=== PATIENT | male | born 1960 | race Native Hawaiian/Other Pacific Islander ===

== ENCOUNTER 2016-03-11 14:40 | Outpatient (CLI) | payer OTHER ==
[~2016-03-11 14:40] MED LIST: AMBIEN5 MG PO; BENTYL10 MG PO; BUTALBITAL/ACET1 CAP PO; FINA5TAB2 PO; FURO40TA93 PO; LEVO0.0723 PO; LIPITOR20 MG PO; LYRICA20 MG/ML OR; RIOMET OR; TAMS0.4C PO; ZANTAC PO
== END 2016-03-11 23:39 | disposition home or self-care (01) ==
LOC: RAD 14:40
DX: M25.551 Pain in right hip (principal)

== ENCOUNTER 2017-02-14 15:22 | Outpatient (CLI) | payer OTHER ==
[2017-02-15] MEDS ORDERED: FURO20TA67 PO (07:48)
[2017-02-15] MEDS ORDERED: LYRICA25 MG OR (07:50)
== END 2017-02-14 15:29 | disposition short-term general hospital (02) ==
LOC: AMB 15:22
DX: M79.672 Pain in left foot (principal); M79.671 Pain in right foot; M79.89 Other specified soft tissue disorders; G25.2 Other specified forms of tremor; R26.89 Other abnormalities of gait and mobility
CPT/HCPCS: A0425; A0427

== ENCOUNTER 2017-02-14 15:31 | Inpatient (IN) | payer OTHER ==
[~2017-02-14] VITALS: Ht 170.2 cm; Wt 84.4 kg
[2017-02-14 15:40] VITALS: BP 154/65; TEMP 96.8
[2017-02-14 16:28] LABS: PLATELET COUNT 236 K/uL (142-355)
[2017-02-14 17:46] LABS: POTASSIUM 3.8 mmol/L (3.6-5.2); SODIUM 143 mmol/L (136-145)
[2017-02-14 23:56] VITALS: BP 143/62; TEMP 98.4; Ht 170.2 cm; Wt 84.4 kg
--- NOTE | 2017-02-15 02:04 | NUR ---
02/14/172050 PATIENT BROUHGT TO FLOOR VIA STRETCHER FROM ER. ASSISTED TO THE BED, PATIENT HAS OWN CLOTHING. 22G TO [facility], . FLOOR NURSE BERYL BURRIS RN WAS IN ROOM DURING ASSESSMENT.
[2017-02-15 04:00] VITALS: BP 111/42; TEMP 98.6
[2017-02-15 05:58] LABS: POTASSIUM 3.1 mmol/L (3.6-5.2); SODIUM 142 mmol/L (136-145)
[2017-02-15 06:34] LABS: PLATELET COUNT 190 K/uL (142-355)
--- NOTE | 2017-02-15 06:51 | NUR ---
0651 02/15/17 ATTEMPTED 16FRENCH CATHETER. NO SUCCESS.
[2017-02-15] MEDS ORDERED: FURO20TA67 PO (07:48)
[2017-02-15] MEDS ORDERED: LYRICA25 MG OR (07:50)
[2017-02-15 08:00] VITALS: BP 122/55; TEMP 97.6
[2017-02-15 12:00] VITALS: BP 137/54; TEMP 98.2
[2017-02-15 16:00] VITALS: BP 128/59; TEMP 98.9
[2017-02-15 20:00] VITALS: BP 135/87; TEMP 98.6
[2017-02-16] VITALS: BP 139/65; TEMP 98.2
--- NOTE | 2017-02-16 01:18 | NUR ---
02/16/17 WARM COMPRESSES APPLIED TO NECK/FACE.CC
[2017-02-16 04:00] VITALS: BP 132/70; TEMP 98.1
--- NOTE | 2017-02-16 04:24 | NUR ---
02/16/17 040 PT SITTING ON SIDE OF BED NOT WEARING OXYGEN SATURATION IS NOTED TO BE 88-89.PT IS HAS SOME TROUBLE BREATHING AND SOME WHEEZING LUNG SOUNDS ARE DIMINISHED.OXYGEN PLACED BACK ON PT O2 SAT'S CAME UP TO 94 PERCENT.CC 02/16/17 0405 RESPIRATORY NOTIFIED FOR CONSULT.CC 02/16/17 0415 RESPIRATORY PRESENT IN ROOM TO EVALUATE PATIENT RECOMMENDS FOR PT TO HAVE DUONEBS EVERY 6 HOURS AND PRN.CC 02/16/17 0430 RESPIRATORY PRESENT IN ROOM FOR BREATHING TREATMNET.CC
--- NOTE | 2017-02-16 04:48 | NUR ---
02/16/17 0448 PATIENT RESTING IN BED WITH EYES CLOSED, SEEMS TO BREATH BETTER SINCE RESPIRTATORY GAVE BREATHING TREATMET. NO ACUTE DISTRESS NOTED.
[2017-02-16 05:29] LABS: PLATELET COUNT 158 K/uL (142-355)
[2017-02-16 05:53] LABS: POTASSIUM 3.7 mmol/L (3.6-5.2); SODIUM 142 mmol/L (136-145)
[2017-02-16 07:50] VITALS: BP 135/61; TEMP 98.6
[2017-02-16 12:00] VITALS: BP 137/61; TEMP 99.5
[2017-02-16 15:54] VITALS: BP 142/59; TEMP 98.9
[2017-02-16 20:09] VITALS: BP 159/54; TEMP 98.6
[2017-02-17] VITALS: BP 145/70; TEMP 98.3
[2017-02-17 04:00] VITALS: BP 168/58; TEMP 98.1
[2017-02-17 04:45] LABS: PLATELET COUNT 142 K/uL (142-355)
[2017-02-17 05:10] LABS: POTASSIUM 3.5 mmol/L (3.6-5.2); SODIUM 140 mmol/L (136-145)
[2017-02-17 08:00] VITALS: BP 171/72; TEMP 98.2
[2017-02-17] MEDS ORDERED: LEVO0.0723 PO (12:07)
[2017-02-17] MEDS ORDERED: LEVAQUIN 500MG TAB PO (12:07)
[2017-02-17 12:18] VITALS: BP 166/62; TEMP 97.9
== END 2017-02-17 12:45 | disposition home or self-care (01) | DRG 603 ==
LOC: ED 15:31 → MED/SURG 18:42
PROVIDERS: Internal Medicine; ADMIT Specialist
DX: L03.116 Cellulitis of left lower limb (principal); L03.115 Cellulitis of right lower limb; E11.9 Type 2 diabetes mellitus without complications; K21.9 Gastro-esophageal reflux disease without esophagitis; J44.9 Chronic obstructive pulmonary disease, unspecified
CPT/HCPCS: 36415; 80048; 80053; 80076; 80202; 81000; 82140; 82948; 83605; 83735; 84443; 85027; 85610; 85651; 87040; 94640; 94664; 94760; 96361; 96365; 96372; 99284; J1644; J1956; J3370

== ENCOUNTER 2017-02-20 12:30 | Outpatient (CLI) | payer OTHER ==
[~2017-02-20 12:30] MED LIST changes: +FURO20TA67 PO; +LEVAQUIN 500MG TAB PO; +LYRICA25 MG OR
[2017-02-21] MEDS ORDERED: BUDE1AER5 INH (11:53)
[2017-02-21] MEDS ORDERED: LYRICA200 MG PO (11:54)
[2017-02-21] MEDS ORDERED: TIROSINT25 MCG PO (11:55)
[2017-02-21] MEDS ORDERED: FLONASE AL50 MCG/ACT (11:55)
[2017-02-21] MEDS ORDERED: OLANZAPINE20 M1 PO (11:56)
[2017-02-21] MEDS ORDERED: BUSPIRONE10 MG PO (11:56)
[2017-02-21] MEDS ORDERED: QUETIAPINE FUM400 MG PO (11:57)
== END 2017-02-20 12:39 | disposition short-term general hospital (02) ==
LOC: AMB 12:30
DX: R41.82 Altered mental status, unspecified (principal); E86.0 Dehydration
CPT/HCPCS: A0425; A0427

== ENCOUNTER 2017-02-20 12:41 | Inpatient (IN) | payer OTHER ==
[~2017-02-20] VITALS: Ht 175.3 cm; Wt 75.0 kg
[2017-02-20 12:42] VITALS: BP 167/77; TEMP 98
[2017-02-20 14:30] VITALS: BP 156/74
[2017-02-20 14:55] LABS: POTASSIUM 3.6 mmol/L (3.6-5.2); SODIUM 139 mmol/L (136-145)
[2017-02-20 15:01] LABS: PLATELET COUNT 164 K/uL (142-355)
[2017-02-20 15:11] LABS: PARTIAL THROMBOPLASTIN TIME 25.5 SECONDS (24.5-33.6)
[2017-02-20 17:45] VITALS: BP 150/72
[2017-02-20 23:13] VITALS: BP 148/75; TEMP 97.6; Ht 175.3 cm; Wt 75.0 kg
[2017-02-21] VITALS: BP 145/61; TEMP 97.7
[2017-02-21 05:12] LABS: PLATELET COUNT 169 K/uL (142-355)
[2017-02-21 05:29] LABS: POTASSIUM 3.3 mmol/L (3.6-5.2); SODIUM 142 mmol/L (136-145)
[2017-02-21 06:28] VITALS: BP 179/77; TEMP 98.6
[2017-02-21 08:00] VITALS: BP 148/68; TEMP 99.2
[2017-02-21] MEDS ORDERED: BUDE1AER5 INH (11:53)
[2017-02-21] MEDS ORDERED: LYRICA200 MG PO (11:54)
[2017-02-21] MEDS ORDERED: FLONASE AL50 MCG/ACT (11:55)
[2017-02-21] MEDS ORDERED: TIROSINT25 MCG PO (11:55)
[2017-02-21] MEDS ORDERED: BUSPIRONE10 MG PO (11:56)
[2017-02-21] MEDS ORDERED: OLANZAPINE20 M1 PO (11:56)
[2017-02-21] MEDS ORDERED: QUETIAPINE FUM400 MG PO (11:57)
[2017-02-21 12:00] VITALS: BP 160/63; TEMP 99.1
[2017-02-21 16:00] VITALS: BP 181/82; TEMP 99.3
[2017-02-21 20:00] VITALS: BP 167/66; TEMP 98.9
[2017-02-22 01:04] VITALS: BP 142/53; TEMP 98.8
[2017-02-22 05:06] VITALS: BP 145/58; TEMP 98.8
[2017-02-22 05:41] LABS: POTASSIUM 3.8 mmol/L (3.6-5.2); SODIUM 140 mmol/L (136-145)
[2017-02-22 06:26] LABS: PLATELET COUNT 161 K/uL (142-355)
[2017-02-22 09:18] VITALS: BP 150/65; TEMP 98.3
[2017-02-22 12:00] VITALS: BP 159/67; TEMP 99.3
[2017-02-22 16:00] VITALS: BP 167/74; TEMP 99.2
[2017-02-22 20:00] VITALS: BP 196/82; TEMP 99.4
[2017-02-23] VITALS: BP 163/69; TEMP 99.2
[2017-02-23 07:03] LABS: PLATELET COUNT 169 K/uL (142-355)
[2017-02-23 08:00] VITALS: BP 154/66; TEMP 98.1
[2017-02-23 09:12] LABS: POTASSIUM 3.9 mmol/L (3.6-5.2); SODIUM 137 mmol/L (136-145)
[2017-02-23 11:57] VITALS: BP 169/71; TEMP 97.6
[2017-02-23 16:00] VITALS: BP 152/64; TEMP 98.6
[2017-02-23 20:22] VITALS: BP 152/59; TEMP 98.8
[2017-02-24] VITALS: BP 115/64; TEMP 98.6
[2017-02-24 04:00] VITALS: BP 162/75; TEMP 98.9
[2017-02-24 06:18] LABS: POTASSIUM 3.8 mmol/L (3.6-5.2); SODIUM 136 mmol/L (136-145)
[2017-02-24 06:29] LABS: PLATELET COUNT 189 K/uL (142-355)
[2017-02-24 07:00] VITALS: BP 129/75; TEMP 98
[2017-02-24 12:00] VITALS: BP 152/70; TEMP 98.6
[2017-02-24 16:00] VITALS: BP 145/64; TEMP 98.8
[2017-02-24 20:00] VITALS: BP 156/69; TEMP 98.9
[2017-02-25] VITALS: BP 134/59; TEMP 99.2
[2017-02-25 04:00] VITALS: BP 153/68; TEMP 98.6
[2017-02-25 08:00] VITALS: BP 161/74; TEMP 98.6
[2017-02-25 11:00] VITALS: BP 158/81; TEMP 98.4
[2017-02-25 20:13] VITALS: BP 163/71; TEMP 98.4
[2017-02-26] VITALS: BP 168/80; TEMP 98.7
[2017-02-26 04:00] VITALS: BP 163/74; TEMP 98.7
[2017-02-26 08:00] VITALS: BP 152/70; TEMP 98.3
[2017-02-26] MEDS ORDERED: CIPRO500 MG PO (09:50)
[2017-02-26 11:49] VITALS: BP 154/67; TEMP 98.1
[2017-02-26 16:00] VITALS: BP 182/65; TEMP 97.8
[2017-02-26 20:23] VITALS: BP 137/62; TEMP 98.7
[2017-02-27 00:27] VITALS: BP 134/66; TEMP 98
[2017-02-27 04:27] VITALS: BP 133/72; TEMP 97.8
[2017-02-27 08:00] VITALS: BP 126/74; TEMP 97.9
[2017-02-27 12:00] VITALS: BP 123/65; TEMP 97.6
== END 2017-02-27 15:35 | DRG 190 ==
LOC: ED 12:41 → MED/SURG 16:30
PROVIDERS: ADMIT Emergency Medicine
DX: J44.0 Chronic obstructive pulmonary disease with (acute) lower respiratory infection (principal); J18.8 Other pneumonia, unspecified organism; R41.82 Altered mental status, unspecified; E11.69 Type 2 diabetes mellitus with other specified complication; N40.0 Benign prostatic hyperplasia without lower urinary tract symptoms; L03.116 Cellulitis of left lower limb; L03.115 Cellulitis of right lower limb; R13.11 Dysphagia, oral phase; R48.8 Other symbolic dysfunctions
CPT/HCPCS: 36415; 36600; 80053; 80202; 80307; 80320; 81000; 82140; 82550; 82805; 82948; 83735; 83880; 84443; 84484; 85027; 85379; 85610; 85730; 87040; 87077; 87185; 87186; 87205; 93005; 94640; 94664; 94760; 96360; 96366; 96367; 96372; 96375; 99284; J1650; J2920

== ENCOUNTER → 2017-03-24 11:41 | Outpatient (CLI) | payer OTHER ==
[~2017-03-24 11:41] MED LIST changes: +BUDE1AER5 INH; +BUSPIRONE10 MG PO; +CIPRO500 MG PO; +FLONASE AL50 MCG/ACT; +LYRICA200 MG PO; +OLANZAPINE20 M1 PO; +QUETIAPINE FUM400 MG PO; +TIROSINT25 MCG PO
== END | disposition home or self-care (01) ==
LOC: AMB 11:41
DX: R41.82 Altered mental status, unspecified (principal); R47.81 Slurred speech

== ENCOUNTER 2017-03-24 12:45 | Outpatient (CLI) | payer OTHER | END 2017-03-24 12:52 | disposition short-term general hospital (02) | LOC: AMB 12:45 | DX: R53.1 Weakness (principal) | CPT/HCPCS: A0425; A0429 ==

== ENCOUNTER 2017-03-24 12:57 | Emergency (ER) | payer OTHER ==
[~2017-03-24] VITALS: Ht 170.2 cm; Wt 81.6 kg
[2017-03-24 14:07] LABS: PLATELET COUNT 202 K/uL (142-355)
[2017-03-24 14:19] LABS: POTASSIUM 4.5 mmol/L (3.6-5.2); SODIUM 130 mmol/L (136-145)
[2017-03-24 18:50] VITALS: BP 129/91; TEMP 98.2
== END 2017-03-24 18:56 | disposition home or self-care (01) ==
LOC: ED 12:57
PROVIDERS: Family Medicine
DX: T40.2X1A Poisoning by other opioids, accidental (unintentional), initial encounter (principal); R40.0 Somnolence; E86.0 Dehydration; I44.4 Left anterior fascicular block; Y93.89 Activity, other specified; X58.XXXA Exposure to other specified factors, initial encounter; Y92.89 Other specified places as the place of occurrence of the external cause
CPT/HCPCS: 80053; 84484; 85027; 93005; 94664; 96361; 96365; 96374; 96375; 99285; J2310

== ENCOUNTER 2017-07-22 13:39 | Inpatient (IN) | payer OTHER ==
[2017-07-22] VITALS (20 sets, daily range): BP systolic 104–125; BP diastolic 53–67; TEMP 98.5–99.5; Ht 170.2 cm; Wt 72.8 kg
[~2017-07-22] VITALS: Ht 170.2 cm; Wt 72.8 kg
[~2017-07-22 13:39] MED LIST changes: -Flonase Nasal Inhaler NAS; -LYRICA50 MG PO; -NICOTINE TD
[2017-07-22 14:37] LABS: PLATELET COUNT 208 K/uL (142-355)
[2017-07-22 14:57] LABS: POTASSIUM 3.5 mmol/L (3.6-5.2)
[2017-07-22 15:19] LABS: PARTIAL THROMBOPLASTIN TIME 26.1 SECONDS (24.5-33.6)
[2017-07-23] VITALS (23 sets, daily range): BP systolic 93–129; BP diastolic 48–70; TEMP 97.8–99.4
--- NOTE | 2017-07-23 00:10 | NUR ---
PT RESTING IN BED WITH EYES CLOSED AND SNORING NOTED, NO S/S OF DISTRESS OR PAIN NOTED, IV INTACT WITH FLUID ONGOING, VENTI MASK IN USE WITH FIO2 OF 28%, PETERS PATENT DRAINING TO BEDSIDE, SOW FARM TECHNICIAN IN USE, RADIAL PULSES INTACT, SKIN WARM AND DRY, WILL CONTINUE TO MONITOR CLOSELY, RAILS UP X3, BED IN LOW POSITION.
--- NOTE | 2017-07-23 04:35 | NUR ---
PT RESTING IN BED WITH EYES CLOSED AND SNORING NOTED, NO S/S OF PAIN OR DISTRESS NOTED, SKIN WARM AND DRY, RADIAL PULSES INTACT, CHEF DE FROID IN USE, VITALS BEING MONITORED, IV REMAINS INTACT WITH FLUID ONGOING AT 125ML.HR PER ORDER, VENTI MASK IN USE WITH FIO2 OF 50% AND O2 SAT OF 94%, RESP RATE NONLABORED, 16F PETERS PATENT DRAINING TO BEDSIDE. SCDs APPLIED TO BOTH LEGS, WILL MONITOR, RAILS UP, BED IN LOW POSITION.
[2017-07-23 07:46] LABS: PLATELET COUNT 194 K/uL (142-355)
[2017-07-23 07:48] LABS: POTASSIUM 3.8 mmol/L (3.6-5.2)
--- NOTE | 2017-07-23 08:00 | NUR ---
AM ASSESSEMENT DONE. PT RESTING IN BED HOB, PT VERY DROWSY THIS AM. MOANS A LITTLE WHEN MOVED VERY DROWSY, NOTED SKIN CONDITION MULT BRUISES VARIOUS STAGES HEALING LEFT EYE SWOLLEN RED ABRASION SCABS. LEFT SHOULDER AND ARM REDNESS BRUSIES.
--- NOTE | 2017-07-23 09:33 | NUR ---
REPORT PT CONDITION AND CRITICAL LABS TO CORRINA BHATTI COSMETIC SALES CONSULTANT. PT STILL SLEEPING. SAT 96% WEARING VENTI MASK.
--- NOTE | 2017-07-23 09:52 | NUR ---
CORRINA BHATTI VISITED CHECKED PT REPORT FRANNY GONZALEZ. PT BEGINNING TO WAKE UP A LITTLE.
--- NOTE | 2017-07-23 10:26 | NUR ---
REMOVED DRESSING TO RIGHT ARM NOTED DARK BLACK SCABS, APPEARS TO BE OLDER WOUNDS SKIN DARK RED ARM ON CHUX WILL LEAVE DRESSING OFF. WILL TRY TO GIVE PT SIPS CLEAR LIQUIDS. CONTINUES SLEEPING VERY DROWSY.
--- NOTE | 2017-07-23 12:08 | NUR ---
ATTEMPT TO WAKE PT UP. WASHED FACE, WAKING UP SOME. TRIED SOME FLUIDS PT BEGAN TO COUGH WITH WATER, HAVING DIFFICULT TIME PULL WATER BY STRAW, PLACED FEW DROPS ON TONGUE BEGAN TO COUGH. CHANGED TO SOME THICKER FLUIDS TRIED APPLE SAUCE PT TOOK BETTER, SWALLOWED OK TOOK SIP OF COLD ENSURE THICKER LIQUIDS DOES A LITTLE BETTER WITH THICKEN LIQUIDS REPORT TO CORRINA BHATTI MANNEQUIN MOLDER RECIEVED NEW ORDERS.
--- NOTE | 2017-07-23 13:32 | NUR ---
PT TURNED AND REPOSITIONED. UNABLE TO TAKE FLUIDS THROUGH STAW. WILL TAKE APPLE SAUCE. MEDS GIVEN WITH APPLESAUCE. HOB UP HIGH PT KEEPS DRIFTING OFF TO SLEEP.
--- NOTE | 2017-07-23 14:55 | NUR ---
TURNED AND REPOSITIONED, HOB UP, PT CONTINUES SLEEPING VERY DROWSY. NO CHANGES NOTED, PUPILS 3MM EQUAL REACTIVE. ..
--- NOTE | 2017-07-23 16:30 | NUR ---
PT MOVING ARMS HANDS PULLED IV OUT BY ACCIDENT. BLEEDING PT CLEANED UP BLEEDING STOPPED. CATH INTACT NO SWELLING AT SITE. NO SIGNS OF INFECTION. RESTART 22 GA RIGHT FA RESUME IV FLUIDS PT RECIEVED MEDS ORDERED. EMPTIED 1200 ML FROM PETERS CATH. PT RECIEVED LASIX 20 IVP. RECIEVED MEDS WITH APPLESAUCE HOB UP.
--- NOTE | 2017-07-23 16:45 | NUR ---
ATTEMPT TO WEAN DOWN ON VENTI MASK O2 AT 35%. HAD TO GO BACK TO 50% VENTI MASK SAT HAD DROPPED TO 90-92. SAT BACK UP TO 95%. REPORT TO RESP DEPT.
--- NOTE | 2017-07-23 18:33 | NUR ---
PT CONTINUES RESTING QUIETLY. CONTINUE DROWSY. PT DIDN'T WANT TT TRY TO EAT ANYTHING. IV FLUIDS INFUSING WITHOUT DIFFICULTY.
--- NOTE | 2017-07-23 20:04 | NUR ---
PM ASSESSMENT COMPLETED. PT DOES AROUSE. ALERT. SR ON CM. NS INFUSING AT 125 ML/HR. RESP ARE EVEN AND UNLABORED. PT IN WITH RHABDO.
--- NOTE | 2017-07-23 21:58 | NUR ---
PT ATE 75 PERCENT OF HIS MEAL. ASSISTANCE WAS GIVEN. PT IS SHAKY. SHAKING HIS LEFT HAND AND ITS HARD FOR HIM TO GRASP CUP/UTENSILS. HE DENIES ANY DISFORT EXCEPT JUST BEING SORE FROM THE FALL.
[2017-07-24] VITALS (24 sets, daily range): BP systolic 104–150; BP diastolic 42–73; TEMP 97–98.4
--- NOTE | 2017-07-24 02:58 | NUR ---
PT CONTINUES TO REST WITH EYES CLOSED.
[2017-07-24 06:17] LABS: PLATELET COUNT 164 K/uL (142-355)
[2017-07-24 06:18] LABS: POTASSIUM 3.8 mmol/L (3.6-5.2)
--- NOTE | 2017-07-24 07:00 | NUR ---
REPORT FROM PM STAFF. PT ON BIPAP 29/08 60% O2.O2 SATS 94%. PT NOT RESPONSIVE TO VERBAL OR PHYSICAL STIMULI. PUPILS 3MM& SLUGGISH. FACE WITH NOTED BRUISING & EDEMA TO L. ABRASIONS NOTED TO L EYE & BRIDGE OF NOSE.NO S/SX INFECTION.AREAS SCABBED OVER. IV R FA 22G WITH NS INFUSING AT 125ML/HR. NOTED BRUISING TO R FA WITH SMALL SCABBED OVER ABRAISIONS TO ARM & R HAND, BRUISING RED PURPLE IN COLOR TO LSHOULDER,ANDREAS ARM,LL ARM & L HAND.L ELBOW WITH SEVERAL ABRASIONS 1-2 CMS IN DIAMETER WITH DRIED BLOOD & SCBBS. L FA WITH APPROX 2CMX 3CM ABRAISION DRY,MULTIPLE SMALL ABRASIONS ON L FA. MEGHAN KNEES WITH RED ARESA & SCABBED AREAS TO SIDES OF KNEES. SM AREA RAISED RED ? BITES TO R HIP & SEVERAL TO BACK. PETERS TO BSD WITH CL YELLOW URINE.
--- NOTE | 2017-07-24 07:56 | NUR ---
DIMPLE 07/24/17 5:40 AM' AT PT'S BEDSIDE. PT BEGAN DESATING AND HIS COLOR WAS CHANGING FROM TO PAZ. PT UNRESPONSIVE TO TACTILE AND VERBAL STIMULUS. BEGAN BAGGING PER AMBU. SATS INCREASING. NARCAN 0.4 IVSP X 2 GIVEN AT 452AM. PT STILL UNRESPONSIVE. DR. COLON HERE. LABS DRAWN. PT PLACE ON BIPAP. CXRAY DONE. VITAL SIGNS 128/58 82 HR AND O2 SATS 94.
--- NOTE | 2017-07-24 08:30 | NUR ---
ANÍBAL GOMEZ LPN/GERALD/HOSPITALIST INTO SEE PT. REPORTED [id number] THIS AM & MCFX 10.5.
--- NOTE | 2017-07-24 11:35 | NUR ---
PT CHANGED TO A 50% VM. O2 SATS REMAIN 98%. PT 'S HAIR SHAMPOOED & BATH GIVEN,PERMETHERIN CREAM APPLIED. PT GROANS WHEN TURNED.
--- NOTE | 2017-07-24 12:15 | NUR ---
PT AWAKE,ASSISTED TO DRINK SM AMT OF TEA THROUGH A STRAW. PT APPEARS TO GET CHOKED & COUGHED TO CLEAR AIRWAAY.
--- NOTE | 2017-07-24 12:45 | NUR ---
BERNARDO PHILLIPS ST IN TO SEE PT. PT WITH EYES CLOSED. WILL DELANEY PT ON THURSDAY.
--- NOTE | 2017-07-24 13:30 | NUR ---
CORRINA BHATTI CUSTOMER DEVELOPMENT MANAGER IN TO SEE PT. PT RESTLESS AT INTERVALS,PT TALKED WITH CORRINA.
--- NOTE | 2017-07-24 15:00 | NUR ---
PT RESTING WITH EYESEYES CLOSED.
--- NOTE | 2017-07-24 17:39 | NUR ---
PT PULLING AT VENTIMASK & GOWN,HAS PULLED OFF SEVERAL LEADS FOR SENIOR MARKETING ENGINEER. WHEN LEADS REPLACED & GOWN RETIED,PT MUMBLED AT ME. WHEN ASKED IF PT COULD SEE ME,PT PLAINLY STATED'YES'. PT WILL NOT ELABORATE WHEN ASKED ADDITIONAL QUESTIONS. O2 SATS 99% ON VM50% O2.
--- NOTE | 2017-07-24 18:00 | NUR ---
MOUTHCARE,PT GIVEN THICKENED TEA WITH MINIMAL COUGHING. PT REPEATEDLY REACES TO HOLD GLASS & SAYS ''LETME',PT WITH SPASTIC TYPE MOVEMENT OF ARMS,UNABLE TO GRASP CUP. PT FED SM AMT OF PUREED MEAL.
--- NOTE | 2017-07-24 18:30 | NUR ---
PT PULLING OFF VM, MORE ALERT ANSWERS QUESTIONS. RT VERONICA WILLIS IN TO SEE PT,PT CHANGED TO A NC 3L,O2 SATS 99%.
--- NOTE | 2017-07-24 21:34 | NUR ---
DID NOT GIVE PT ORAL MEDICATIONS DUE TO PT COUGHING AND GOT CHOKED EARLIER TODAY ON TEA. MANAGER OF IT MONITORING CLOSELY AND ASPIRATION PRECAUTIONS IN USE. WILL REPORT TO IN MORNING.
--- NOTE | 2017-07-24 21:50 | NUR ---
PT SLIGHTLY RESTLESS AND KEEPS STATING "OUCHY", NO DISTRESS NOTED, WHEN ASKED PT STATES HE HURTS ALL OVER AND IS SORE FROM FALLING. SPOKE WITH DR. NUNEZ IN ER ABOUT PT'S COMPLAINTS. ALSO INFORMED DR THAT PT GOT CHOKED ON TEA DURING DAY SHIFT AND CHURN DRILL OPERATOR IS TAKING ASPIRATION PRECAUTIONS. PT HAS WET COUGH AT TIMES. NEW ORDER FOR TORADOL 30MG IVP X [address] DOSE[address] T. O. R&V DR. NUNEZ/BENJI LOERA RN. 3165 GAVE PT TORADOL SLOW IVP AT THIS TIME, SITE FLUSHED BEFORE AND AFTER WITH NS. WILL MONITOR CLOSELY.
--- NOTE | 2017-07-24 22:52 | NUR ---
PT RESTLESS, PULLING GOWN OFF AND TECHNICAL AGRONOMIST LEADS, KEEPS PUTTING NASAL CANNULA IN HIS MOUTH OR PULLING IT OFF, THROWING LEGS OVER SIDE RAILS, THREW PILLOW IN FLOOR. REORIENTED MULTIPLE TIMES. NO S/S OF PAIN NOTED.
--- NOTE | 2017-07-24 23:02 | NUR ---
SPOKE WITH DR. NUNEZ IN ER ABOUT PT CONTINUING TO BE VERY RESTLESS, PULLING AT SOFT IRON INSPECTOR AND OXYGEN TUBING, PT GRABBING BED RAILS AND PULLING HIS SELF UP FOR A FEW SECONDS THEN HIS ARM FALLS LIMP. PT IS ORIENTED TO PERSON AND PLACE, ALSO KNOWS HIS DATE OF . PT THREW PILLOWS OFF BED AND PULLED GOWN OFF. RESP RATE ELEVATED AT 30-32. NEW ORDER FOR ATIVAN 0.5MG IVP X 1 DOSE NOW T.O. R&V DR. NUNEZ/BENJI LOERA RN.
--- NOTE | 2017-07-24 23:10 | NUR ---
PT RESTED WITH EYES CLOSED FOR APPROX 10 MINUTES AND IS NOW AWAKE AND RESTLESS AGAIN. PULLING AT TUBING, PULLED GOWN OFF. PIPE FOREMAN AT BEDSIDE. VITALS STABLE AND WNL, PT DOES NOT HAVE TO USE THE BATHROOM AND PT HAS PETERS CATH, ATTEMPTED TO GET PT TO TELL PIPE FOREMAN WHAT IS WRONG OR HOW HE FEELS AND PT CAN NOT REALLY TELL NURSE ANYTHING THAT IS BOTHERING HIM. MOUTH CARE COMPLETED AND PT ASSISTED PIPE FOREMAN AND SWABBED HIS OWN MOUTH. IV INTACT WITH FLUID ONGOING, NC IN USE, PETERS PATENT DRAINING TO BEDSIDE, SCDs IN USE. PT MOVING AROUND IN BED PER SELF.
--- NOTE | 2017-07-24 23:20 | NUR ---
PT RESTLESS, CONSTANTLY PULLING OFF STATOR WINDER LEADS AND PULLED O2 VIA NC OFF, REASSURED PT, WHEN ASKED ABOUT PAIN HE STATES HIS NOSE HURTS REFERRING TO THE NC IN HIS NOSE. WOVEN BLIND LOOM TENDER REMAINS AT BEDSIDE WITH PT FOR SAFETY REASONS.
--- NOTE | 2017-07-24 23:30 | NUR ---
GAVE ATIVAN 0.5MG SLOW IVP PER NEW ORDER, WILL MONITOR PT CLOSELY.
--- NOTE | 2017-07-24 23:41 | NUR ---
PT NOW RESTING QUIETLY IN BED WITH EYES CLOSED, NO ACUTE DISTRESS OR S/S OF PAIN NOTED, RESP RATE DECREASED TO 24, O2 IN USE, WILL CONTINUE TO MONITOR CLOSELY, RAILS UP X3, BED IN LOW POSITION.
[2017-07-25] VITALS (23 sets, daily range): BP systolic 112–184; BP diastolic 59–103; TEMP 98–99
--- NOTE | 2017-07-25 01:50 | NUR ---
PT RESTLESS, PULLED NASAL CANNULA OFF MULTIPLE TIMES AND ALSO PUT IT IN HIS MOUTH. RESP RATE 34 WITH SOME DISTRESS AND ACCESORY MUSCLE USE IN NECK, PT REOREINTED OFTEN AND ENCOURAGED TO NOT MESS WITH O2. O2 SAT 84-87% ON NC. RESPIRATORY NOTIFIED AFTER JOB FOREMAN PLACE PT IN HIGH TRUJILLO'S POSITION. AUDIBLE FAINT CRACKLE LIKE NOISES HEARD. 0200 AND ABG DRAWN. WILL NOTIFY DR WHEN RESULTS ARE BACK. 0210 PT PLACED ON VENTI MASK WITH FIO2 OF 40% DUE TO CONTINUED LOW O2 SAT AND RAPID RESPIRATIONS. AFTER A FEW MINUTES O2 SAT IS 90-92%. PT PULLING AT VENTI MASK ALMOST CONSTANTLY AND JOB FOREMAN HAD TO REMAIN AT BEDSIDE TO REORIENTED PT AND ENCOURAGE HIM NOT TO PULL ON MASK.
--- NOTE | 2017-07-25 02:20 | NUR ---
PT PLACED ON BIPAP BY RESPIRATORY WITH SETTINGS OF 14/7 AND FIO2 OF 60%, PT PULLING AT MASK, REORIENT MULTIPLE TIMES. WILL CONTINUE TO MONITOR CLOSELY, STAFF REMAINS AT BEDSIDE.
--- NOTE | 2017-07-25 02:35 | NUR ---
PT REMAINS RESTLESS AND PULLING AT BIPAP, REORIENTED MULTIPLE TIMES AND ENCOURAGED PT NOT TO PULL AT MASK. O2 SAT NOW 99% ON BIPAP 14/7 FIO2 60%. IV INTACT WITH FLUID ONGOING, RESP RATE 30, PETERS PATENT DRAINING TO BEDSIDE, SCDs IN USE, WORK CHECKER IN USE, VITALS BEING MONITORED, STAFF REMAINS AT BEDSIDE, RAILS UP, BED IN LOW POSITION. REMAINS IN HIGH TRUJILLO'S POSITION.
--- NOTE | 2017-07-25 03:07 | NUR ---
RESTING WITH EYES CLOSED, CALM WITH NO DISTRESS NOTED, BIPAP IN USE WITH O2 SAT OF 100%, RESP RATE 30, WILL MONITOR CLOSELY.
[2017-07-25 06:34] LABS: PLATELET COUNT 140 K/uL (142-355)
--- NOTE | 2017-07-25 07:05 | NUR ---
REPORT FROM PM STAFF. PT IN HF WITH EYES OPEN ,ON BIPAP. PT RESTLESS. PULLING AT WIRES & BIPAP.
--- NOTE | 2017-07-25 08:25 | NUR ---
PT WITH RAMBLING TYPE SPEECH & JRKY TYPE MOTIONS CONTINUES TO PULL OFF BIPAP. ATTEMPTED TO REASON WITH PT. ATTEMPTED DISGUISING WIRES & BIPAP. MI GRABS HOSE & JUST PULLS. ATTEMPTED MITTS ON HANDS BRIEFLY. PT BULLED THEM OFF IMMEDIATELY. DR LEZAMA NOTIFIED. NEW ORDERS.
--- NOTE | 2017-07-25 09:00 | NUR ---
PT CONTINUES TO PULL AT WIRES & BIPAP,PULLING COMPLETELY OFF. REPORTED TO DR LEZAMA. NEW ORDERS.
--- NOTE | 2017-07-25 11:10 | NUR ---
PT STABLE TO CT VIS BED ON VM 50% O2 PER RT,RAD & NURSE TECH.
--- NOTE | 2017-07-25 11:26 | NUR ---
PT BACK FROM CT, PLACED BACK ON BIPAP PER CALDERON BENSON NICKER AND BREAKER. PT CYNTHIA.
--- NOTE | 2017-07-25 12:32 | NUR ---
DR LEZAMA & ANÍBAL GOMEZ ENROLLMENT SERVICES DEAN/SCRIBE IN TO SEE PT. PT RESTING QUIETLY AT THIS TIME.
--- NOTE | 2017-07-25 15:40 | NUR ---
ABG PER RT.
--- NOTE | 2017-07-25 16:50 | NUR ---
ABG RESULTS TO DR LISE BENSON COMMERCIAL CREDIT REVIEWER. 'OK TO PLACE PT ON VM'.
--- NOTE | 2017-07-25 17:20 | NUR ---
PT TAKEN OFF BIPAP PLACED ON VENTI MASK AT 50% DR. LEZAMA AWARE.
--- NOTE | 2017-07-25 18:38 | NUR ---
PT TURNED SELF TO LF,RETLESS, CONTINUES TO PULL AT ANYTHING THAT HE TOUCHES. C/O WALTER GOT TO PEE'. PETERS FREE FLOWING,SHOWED TO PT. PT SEES TO HAVE TROUBLE GRASPING ANY INSTRUCTIONS OR VERBALIZATIONS.
--- NOTE | 2017-07-25 20:50 | NUR ---
RESPIRATORY AT BEDSIDE, PLACE PT ON BIPAP 20/7 WITH FIO2 OF 50%.
[2017-07-26] VITALS (24 sets, daily range): BP systolic 112–195; BP diastolic 70–103; TEMP 98.7–99.7
--- NOTE | 2017-07-26 00:15 | NUR ---
RESPIRATORY DECREASED BIPAP SETTINGS TO 17/5 WITH FIO2 OF 40%.
--- NOTE | 2017-07-26 02:00 | NUR ---
CALLED DR. LEZAMA IN THE ER TO NOTIFY HIM ABOUT PT'S HEART RATE BEING IN THE 40s, GAVE EKG RESULTS OVER THE PHONE, NO S/S OF PROBLEMS NOTED. NO NEW ORDERS AT THIS TIME. PT STILL HAS NOT SLEPT BUT BRIEFLY DURING THE SHIF, RESP RATE NONLABORED, ON BIPAP WITH FIO2 OF 40% WITH SAT OF 96%, RESP RATE 30 NONLABORED, EPITAXIAL REACTOR OPERATOR IN USE, PETERS PATENT DRAINING TO BEDSIDE, SCDs IN USE, IV INTACT WITH FLUID ONGOING, REPOSITIONED TO HIS BACK, FEET ELEVATED ON PILLOW, WILL MONITOR, RAILS UP, BED IN LOW POSITION.
--- NOTE | 2017-07-26 02:10 | NUR ---
RESTING WITH EYES CLOSED, NO S/S OF PAIN OR DISTRESS NOTED, IV INTACT, PETERS PATENT, SCDs IN USE TYPEWRITER MECHANIC IN USE, RESP RATE NONLABORED AND PT ON VENTI MASK AT 40%, REPOSITIONED, FEET ON PILLOW, HOB REAMINS ELEVATED, PT AROUSES BREIFLY AND MUMBLES THEN GOES BACK TO SLEEP. WILL MONITOR, RAILS UP, BED IN LOW POSITION.
--- NOTE | 2017-07-26 04:00 | NUR ---
NOTE PT NO LONGER CAN TELL SUPPLY CHAIN TECH WHERE HE IS AT, AT BEGINING OF SHIFT PT WAS ORIENTED TO PERSON AND PLACE. IV INTACT PETERS PATENT, SCDs in use, bipap in use and resp rate nonlabored, will monitor rails up, bed in low position.
[2017-07-26 06:59] LABS: PLATELET COUNT 151 K/uL (142-355)
[2017-07-26 07:17] LABS: POTASSIUM 3.8 mmol/L (3.6-5.2)
--- NOTE | 2017-07-26 08:00 | NUR ---
PATIENT UNABLE TO TOLERATE PO FLUIDS WITHOUT COUGHING AFTERWARDS. PATIENT CONFUSED X 3. PATIENT ANSWERS YES AND NO INAPPROPRIATELY TO QUESTIONS ASKED. UNABLE TO DETERMINE IF HAS PREVIOUS SWALLOWING DIFFICULTY. MD AWARE. SPEECH CONSULT PREVIOUSLY ORDERED SINCE PATIENT BEEN ADMITTED. NOTES STATES THAT PATIENT TOO LETHARGIC TO DO ADEQUATE ASSESSMENT.
--- NOTE | 2017-07-26 10:00 | NUR ---
SOFT WRIST RESTRAINTS ON PATIENT RELEASED AT THIS TIME DUE TO PATIENT ALERT TO PERSON AND FOLLOWS COMMANDS TO LEAVE TUBES/O2 DEVICE IN PLACE FOR SAFETY. PATIENT REORIENTED TO PLACE AND TIME. PATIENT ORIENTED TO PERSON. SIDE RAILS UP X 4 DUE TO PATIENT TRYING TO GET OUT OF BED DUE TO FREQUENT DISORIENTATION.
--- NOTE | 2017-07-26 12:00 | NUR ---
CALDERON BENSON, RT IN ROOM. PATIENT CONTINUES TO PULL AT VENTI MASK. RESPIRATORY STATED OK TO SWITCH TO NASAL CANNULA 3LPM LONG O2 REMAINS 92%. PATIENT'S O2 95% ON 3LPM. PATIENT LEAVING ALL OTHER WIRES AND TUBES ALONE AT THIS TIME RESTRAINTS RELEASED. PATIENT DISORIENTED X 3. KNOWS SELF AT THIS TIME.
--- NOTE | 2017-07-26 15:00 | NUR ---
PATIENT ABLE TO SWALLOW CRUSHED MEDS WITH PUDDING AND THICKENED ICE TEA. COUGHING NOTICED AFTERWARDS FOR 10 MINS. MD AWARE. O2 96 - 97% ON 3L NC. NO RESP DISTRESS NOTED. PATIENT SITTING UP HIGH FOWLERS IN BED. WRIST RESTRAINTS STILL OFF. NO CUES NEEDED REGARDING LINES/WIRES PATIENT NOT TOUCHING THEM AT THIS TIME.
[2017-07-27] VITALS (26 sets, daily range): BP systolic 103–190; BP diastolic 53–96; TEMP 97.1–98.9
--- NOTE | 2017-07-27 00:08 | NUR ---
PT RESTING IN BED WITH EYES CLOSED, NO S/S OF PAIN OR DISTRESS NOTED, 20G IV INTACT TO R FA WITH FLUID ONGOING, VENTI MASK AT 40% WITH O2 SAT OF 99%, RESP RATE NONLABORED, SCDs IN USE, DRESSING DRY AND INTACT TO L ARM, 16 F PETERS PATENT DRAINING TO BEDSIDE. RESPOSITIONED AND FEET ELEVATED ON PILLOW, WILL CONTINUE TO MONITOR CLOSELY, RAILS UP, BED IN LOW POSITION.
[2017-07-27 05:31] LABS: PLATELET COUNT 143 K/uL (142-355)
[2017-07-27 05:47] LABS: POTASSIUM 3.8 mmol/L (3.6-5.2)
--- NOTE | 2017-07-27 14:46 | NUR ---
MRI TECHS AT BEDSIDE TO TAKE PATIENT FOR MRI.
--- NOTE | 2017-07-27 15:50 | NUR ---
RETURNED FROM MRI.
--- NOTE | 2017-07-27 16:20 | NUR ---
REQUESTED APPLESAUCE. ATE 1 NOW AND FINISHED 1 CAN OF GLUCERNA 1.5
--- NOTE | 2017-07-27 19:30 | NUR ---
RCD PT EASILY ROUSED RESTING ON R SIDE MONITOR SB DENIES PAIN OR SOB O2 40% VENTI MASK. PETERS DARK ANGEL.
--- NOTE | 2017-07-27 20:30 | NUR ---
TURNED SELF IN BED DENIES DISTRESS. SLEEPY SPEECH CLEAR.
--- NOTE | 2017-07-27 20:30 | NUR ---
CONT TO SLEEP BUT ROUSES WHEN CALLED ALERT WHEN ROUSED O2 AT 40% VENTI MONITOR SB URINE REMAINS DARK ANGEL
--- NOTE | 2017-07-27 21:30 | NUR ---
SCD REAPPLIED RINKU HERNANDEZESIABENA ON LEGG HEALING SLEEPY BUT ROUSED
--- NOTE | 2017-07-27 23:40 | NUR ---
TURNED AND REPOSITIONED NO C/O
[2017-07-28] VITALS (14 sets, daily range): BP systolic 110–152; BP diastolic 57–81; TEMP 98–98.7
--- NOTE | 2017-07-28 01:30 | NUR ---
SLEPING EASILY ROUSED DENIES PAIN OR SHANICE NO CHANGGE
--- NOTE | 2017-07-28 02:30 | NUR ---
NO CHANGE O2 40% VENTI RESTING NO C/O
--- NOTE | 2017-07-28 03:32 | NUR ---
BACK TO BED ON R SIDE CONT TO PULL AND TUG ON LINES. NO CHANGE NEURO STATUS
[2017-07-28 06:29] LABS: PLATELET COUNT 155 K/uL (142-355)
[2017-07-28 06:43] LABS: POTASSIUM 3.5 mmol/L (3.6-5.2)
--- NOTE | 2017-07-28 06:47 | NUR ---
BLOOD DRAWN TO LAB
--- NOTE | 2017-07-28 09:24 | NUR ---
CAITIE CANDELARIA, SPEECH PATHOLOGIST AT BEDSIDE DOING SWALLOW STUDY
--- NOTE | 2017-07-28 09:30 | NUR ---
CLEANED WOUNDS TO LT UPPER AND FOREARM WITH NS. BACTROBAN OINTMENT APPLIED TO AFFECTED AREAS. COVERED WITH NONSTICK PADS, WRAPPED WITH GUAZE AND SECURED WITH PAPER TAPE.
--- NOTE | 2017-07-28 10:15 | NUR ---
VISITOR AT BEDSIDE
--- NOTE | 2017-07-28 10:50 | NUR ---
VISITOR HERE TO BRING CLOTHES.
--- NOTE | 2017-07-28 11:05 | NUR ---
KEV MAE HERE TO EXAMINE PATIENT.
--- NOTE | 2017-07-28 12:03 | NUR ---
PT RESTING QUIETLY WITH EYES CLOSED. NAD NOTED. WILL CONTINUE TO MONITOR.
--- NOTE | 2017-07-28 17:07 | NUR ---
PETERS CATH D/C AT THIS TIME ORDERED. PT TOLERATED WELL.
--- NOTE | 2017-07-28 17:59 | NUR ---
PT SITTING UP IN CHAIR EATING SUPPER TRAY
[2017-07-29] VITALS: BP 137/71; TEMP 98.6
[2017-07-29 04:00] VITALS: BP 133/70; TEMP 98.4
[2017-07-29 05:28] LABS: PLATELET COUNT 131 K/uL (142-355)
[2017-07-29 05:59] LABS: POTASSIUM 3.9 mmol/L (3.6-5.2)
[2017-07-29 08:00] VITALS: BP 136/64; TEMP 97.8
[2017-07-29 12:00] VITALS: BP 140/71; TEMP 98
[2017-07-29 16:00] VITALS: BP 170/68; TEMP 98
[2017-07-29 20:25] VITALS: BP 140/57; TEMP 98.7
--- NOTE | 2017-07-29 22:46 | NUR ---
07/29/172114 APPLIED BACTROBAN TO LEFT UPPER ARM APPLIED TELFA PAD AND WRAPPED WITH WARD TOLERATED WELL.CC
[2017-07-30] VITALS: BP 132/54; TEMP 98.3
[2017-07-30 04:00] VITALS: BP 128/57; TEMP 98.1
[2017-07-30 05:29] LABS: PLATELET COUNT 162 K/uL (142-355)
[2017-07-30 05:48] LABS: POTASSIUM 3.5 mmol/L (3.6-5.2)
[2017-07-30] MEDS ORDERED: Flonase Nasal Inhaler NAS (07:58)
[2017-07-30] MEDS ORDERED: NICOTINE TD (07:58)
[2017-07-30] MEDS ORDERED: LYRICA50 MG PO (07:58)
[2017-07-30 08:00] VITALS: BP 139/55; TEMP 97.8
--- NOTE | 2017-07-30 09:00 | NUR ---
IV D/C'D WITH TIP INTACT PRESSURE DRESSING APPLIED. D/C INSTRUCTIONS GIVEN. PT VERBALIZED UNDERSTANDING.
--- NOTE | 2017-07-30 09:15 | NUR ---
PT D/C'D HOME VIA WC IN STABLE COND.
--- NOTE | 2017-07-30 09:52 | NUR ---
Patient discharge home this morning. [facility] notified of discharge. Due to the patient having medicaid only the patient is not eligible for physical therapy at home. An order for outpatient theray has been faxed to centralized scheduling. Will notify patient of the change.
== END 2017-07-30 09:15 | disposition home or self-care (01) | DRG 558 ==
LOC: ED 13:39 → ICU 16:10 → MED/SURG 07-28 18:45
PROVIDERS: Emergency Medicine; Nurse Practitioner Family
DX: M62.82 Rhabdomyolysis (principal); T40.601A Poisoning by unspecified narcotics, accidental (unintentional), initial encounter; Y92.009 Unspecified place in unspecified non-institutional (private) residence as the place of occurrence of the external cause; Z91.81 History of falling; N39.0 Urinary tract infection, site not specified; R13.19 Other dysphagia; R41.82 Altered mental status, unspecified; R06.09 Other forms of dyspnea; E87.8 Other disorders of electrolyte and fluid balance, not elsewhere classified; E11.9 Type 2 diabetes mellitus without complications; E03.8 Other specified hypothyroidism; N40.0 Benign prostatic hyperplasia without lower urinary tract symptoms
CPT/HCPCS: 36415; 36600; 80053; 80061; 80307; 81000; 82550; 82553; 82805; 82962; 83874; 83880; 84484; 85027; 85379; 85610; 85730; 87077; 87086; 87088; 87186; 93005; 94640; 94664; 94760; 96360; 99285; A9576; J0696; J1720; J1885; J1940; J2060; J2310; J2930; J3411; J3486; J3490

== ENCOUNTER → 2017-07-22 | Outpatient (CLI) | payer OTHER ==
[~2017-07-22] MED LIST changes: +Flonase Nasal Inhaler NAS; +LYRICA50 MG PO; +NICOTINE TD
== END | disposition short-term general hospital (02) ==
LOC: AMB 12:47
DX: T07.XXXA Unspecified multiple injuries, initial encounter (principal); W18.39XA Other fall on same level, initial encounter; Y93.89 Activity, other specified; Y92.89 Other specified places as the place of occurrence of the external cause; Y99.8 Other external cause status; F11.10 Opioid abuse, uncomplicated
CPT/HCPCS: A0425; A0427

== ENCOUNTER 2017-09-12 12:00 | Emergency (ER) | payer OTHER ==
[~2017-09-12] VITALS: Ht 170.2 cm; Wt 72.6 kg
[2017-09-12 12:06] VITALS: BP 117/68; TEMP 98
[2017-09-12 13:50] LABS: PLATELET COUNT 243 K/uL (142-355)
[2017-09-12 14:30] LABS: POTASSIUM 4.3 mmol/L (3.6-5.2)
== END 2017-09-12 15:30 | disposition home or self-care (01) ==
LOC: ED 12:00
DX: M47.896 Other spondylosis, lumbar region (principal); M54.5 Low back pain
CPT/HCPCS: 36415; 80053; 80307; 81000; 85027; 93005; 99283

== ENCOUNTER → 2017-09-12 | Outpatient (CLI) | payer OTHER ==
[~2017-09-12] MED LIST changes: +Flonase Nasal Inhaler NAS; +LYRICA50 MG PO; +NICOTINE TD
== END | disposition short-term general hospital (02) ==
LOC: AMB 12:30
DX: M54.89 Other dorsalgia (principal); M79.605 Pain in left leg; M79.604 Pain in right leg
CPT/HCPCS: A0425; A0427

== ENCOUNTER 2017-10-25 12:41 | Emergency (ER) | payer OTHER ==
[~2017-10-25] VITALS: Ht 170.2 cm; Wt 72.6 kg
[2017-10-25 12:40] VITALS: TEMP 100.8
[2017-10-25 12:59] LABS: PLATELET COUNT 160 K/uL (142-355)
[2017-10-25 13:07] LABS: POTASSIUM 3.7 mmol/L (3.6-5.2)
[2017-10-25 15:45] VITALS: BP 127/59
== END 2017-10-25 15:45 | disposition home or self-care (01) ==
LOC: ED 12:41
DX: S82.65XA Nondisplaced fracture of lateral malleolus of left fibula, initial encounter for closed fracture (principal); W18.39XA Other fall on same level, initial encounter; Y92.89 Other specified places as the place of occurrence of the external cause
CPT/HCPCS: 36415; 80053; 85027; 85610; 99283; L1830; L4350

== ENCOUNTER 2017-11-05 16:17 | Inpatient (IN) | payer OTHER ==
[2017-11-05] VITALS (9 sets, daily range): BP systolic 109–135; BP diastolic 40–66; TEMP 97.6–97.8
[~2017-11-05] VITALS: Ht 170.2 cm; Wt 75.0 kg
[2017-11-05 16:55] LABS: POTASSIUM 5.1 mmol/L (3.6-5.2); SODIUM 145 mmol/L (136-145)
[2017-11-05 16:59] LABS: PLATELET COUNT 178 K/uL (142-355)
[2017-11-06] VITALS (24 sets, daily range): BP systolic 96–154; BP diastolic 43–99; TEMP 97.73–99.1; Ht 170.2 cm; Wt 75.0 kg
[2017-11-06 06:19] LABS: PLATELET COUNT 129 K/uL (142-355)
[2017-11-06 06:35] LABS: POTASSIUM 5.2 mmol/L (3.6-5.2)
[2017-11-07] VITALS (15 sets, daily range): BP systolic 104–159; BP diastolic 50–79; TEMP 97.3–98.7
[2017-11-07 07:43] LABS: PLATELET COUNT 159 K/uL (142-355)
[2017-11-07 07:54] LABS: POTASSIUM 3.6 mmol/L (3.6-5.2)
[2017-11-08] VITALS: BP 131/47; TEMP 98.2
[2017-11-08 03:56] VITALS: BP 135/51; TEMP 98.6
[2017-11-08 08:00] VITALS: BP 137/54; TEMP 98.2
[2017-11-08 08:24] LABS: PLATELET COUNT 163 K/uL (142-355)
[2017-11-08 08:52] LABS: POTASSIUM 3.9 mmol/L (3.6-5.2)
[2017-11-08 23:54] VITALS: BP 125/52; TEMP 98.7
[2017-11-09 04:00] VITALS: BP 117/60; TEMP 98.4
[2017-11-09 07:36] LABS: PLATELET COUNT 155 K/uL (142-355)
[2017-11-09 09:04] LABS: POTASSIUM 4.4 mmol/L (3.6-5.2)
== END 2017-11-09 15:45 | disposition home health service (06) | DRG 189 ==
LOC: ED 16:17 → ICU 21:34 → MED/SURG 11-07 14:30
PROVIDERS: Family Medicine; ADMIT Family Medicine
DX: J96.00 Acute respiratory failure, unspecified whether with hypoxia or hypercapnia (principal); J44.1 Chronic obstructive pulmonary disease with (acute) exacerbation; R53.81 Other malaise; I10 Essential (primary) hypertension; E11.42 Type 2 diabetes mellitus with diabetic polyneuropathy; F20.0 Paranoid schizophrenia; N39.0 Urinary tract infection, site not specified
CPT/HCPCS: 36415; 36600; 51702; 80053; 80307; 81000; 82805; 82948; 83735; 84100; 84443; 84484; 85027; 85379; 87077; 87086; 87088; 87186; 87535; 93005; 94640; 94664; 94760; 96372; 96374; 99284; G0432; J0696; J1650; J1815; J2780; J2930

== ENCOUNTER 2017-11-08 20:09 | Outpatient (CLI) | payer OTHER | END 2017-11-08 20:17 | disposition short-term general hospital (02) | LOC: AMB 20:09 | DX: J44.1 Chronic obstructive pulmonary disease with (acute) exacerbation (principal) | CPT/HCPCS: A0425; A0427 ==

== ENCOUNTER → 2018-11-15 13:32 | Outpatient (CLI) | payer OTHER | END | disposition home or self-care (01) | LOC: AMB 13:32 | DX: I46.9 Cardiac arrest, cause unspecified ==